=== PATIENT | male | born 1980 | race Two or more races ===

== ENCOUNTER 2018-04-02 00:49 | Emergency (ER) | payer OTHER ==
[~2018-04-02] VITALS: Ht 185.4 cm; Wt 250.0 kg
--- NOTE | 2018-04-02 01:35 | NUR ---
RESTING QUIETLY, RESP RATE EVEN and REG, SPO2 99% SL NC
--- NOTE | 2018-04-02 01:43 | NUR ---
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 monitors applied, siderails up x2, call light within reach.
--- NOTE | 2018-04-02 01:46 | NUR ---
APPEAR FAMILY AT BEDSIDE
--- NOTE | 2018-04-02 02:25 | NUR ---
pt resting on gurney with eyes closed, nadn, equal chest rise/fall observed, siderails x2 up, call light within reach.
--- NOTE | 2018-04-02 03:21 | NUR ---
noted pt resting at end of gurney, pt pull up and repositioned on gurney, resting with eyes closed, responds to painful stimuli, nadn, respirations even and unlabored, call light within reach.
--- NOTE | 2018-04-02 04:34 | NUR ---
pt resting on gurney with eyes closed snoring, nadn, equal chest rise/fall observed, siderails x2 up, call light within reach.
--- NOTE | 2018-04-02 05:28 | NUR ---
pt resting with eyes closed, snoring and arousable with moderate verbal stimuli then quickly falls back to sleep, nad, equal chest rise/fall observed, will continue to monitor
[2018-04-02 06:29] VITALS: BP 100/61
--- NOTE | 2018-04-02 06:30 | NUR ---
pt resting with eyes closed, nadn, equal chest rise/fall observed, will continue to monitor
--- NOTE | 2018-04-02 06:48 | NUR ---
pt woke up, a&ox4, stated "i'm ready to go", pt up to rr with steady gait
== END 2018-04-02 06:57 | disposition home or self-care (01) ==
LOC: ED 06:55
DX: F10.120 Alcohol abuse with intoxication, uncomplicated (principal)
CPT/HCPCS: 99283